=== PATIENT | female | born 1985 | race Caucasian/White ===

== ENCOUNTER 2017-09-04 12:12 | Outpatient (CLI) | payer OTHER | END 2017-09-04 12:13 | disposition home or self-care (01) | LOC: LAB 12:12 | PROVIDERS: ATTEND Nurse Practitioner Obstetrics & Gynecology | DX: Z36.88 Encounter for antenatal screening for fetal macrosomia (principal) | CPT/HCPCS: 36415; 82947 ==

== ENCOUNTER 2017-09-13 14:27 | Outpatient (CLI) | payer OTHER ==
--- NOTE | 2017-09-15 08:37 | Ultrasound Report ---
OB FOLLOWUP: 09/13/2017 CLINICAL INDICATION: Size greater than dates. COMPARISON: Report of outside ultrasound dated 05/25/2017. CLINICAL INDICATIONS: anatomy. TECHNIQUE: Real-time scanning was performed with metals sales representative static images obtained. LAST MENSTRUAL PERIOD Uncertain CLINICAL AGE 35 weeks 4 days by previous outside scan US AGE 35 weeks 2 days EFW HADLOCK 2593 grams EFW% HADLOCK 36% HEART RATE 126 bpm EDC 10/14/2017 US EDC 10/16/2017 BPD HADLOCK 35 weeks 2 days; Mean mm 88 HC HADLOCK 36 weeks 1 day; Mean mm 321 AC HADLOCK 35 weeks 0 days; Mean mm 311 FL HADLOCK 34 weeks 5 days; Mean mm 68 PRESENTATION cephalic. PLACENTAL LOCATION anterior. CERVICAL LENGTH -- AMNIOTIC FLUID 9.2 cm; MVP 3.5 cm FINDINGS: There is a single viable intrauterine gestation, in cephalic presentation. heart rate is 126 BPM. The placenta is anterior, without evidence of previa. Amniotic fluid volume is normal, with an ALEX of 9.2. By size , the fetus measures 35 weeks 2 days (35 weeks 4 days by outside ultrasound dating). Estimated weight by Hadlock method is 2593 grams. No free fluid or adnexal lesion is seen. IMPRESSION: SINGLE VIABLE INTRAUTERINE GESTATION, WITH SIZE IN KEEPING WITH DATING FROM PREVIOUS SCAN. ESTIMATED WEIGHT OF 2593 GRAMS BY HADLOCK METHOD. TD: 09/13/2017 16:34 MTDD
== END 2017-09-13 14:28 | disposition home or self-care (01) ==
LOC: DI 14:27
PROVIDERS: ATTEND Nurse Practitioner Obstetrics & Gynecology
DX: Z36.88 Encounter for antenatal screening for fetal macrosomia (principal)
CPT/HCPCS: 76816

== ENCOUNTER 2017-09-21 08:00 | Outpatient (CLI) | payer OTHER | END 2017-09-21 23:59 | disposition home or self-care (01) | LOC: LAB.R 08:00 | PROVIDERS: ATTEND Registered Nurse | DX: Z34.83 Encounter for supervision of other normal pregnancy, third trimester (principal) | CPT/HCPCS: 87081 ==

== ENCOUNTER 2017-09-27 11:51 | Outpatient (CLI) | payer OTHER | END 2017-09-27 11:52 | disposition home or self-care (01) | LOC: LAB 11:51 | PROVIDERS: ATTEND Nurse Practitioner Obstetrics & Gynecology | DX: Z36.9 Encounter for antenatal screening, unspecified (principal) | CPT/HCPCS: 36415; 85018; 86850; 86900; 86901 ==

== ENCOUNTER 2017-10-17 07:10 | Inpatient (IN) | payer OTHER ==
[~2017-10-17 07:10] MED LIST: BUPIVACAINE 0.5% PF 10 ML VIAL IM ONE
[2017-10-17] MEDS ORDERED: SODIUM CHLORIDE FLUSH 0.9% 10 ML SYRINGE IVP PRN (09:05)
[2017-10-17] MEDS ORDERED: ONDANSETRON 4 MG/2 ML VIAL IVP PRN ×2 (09:05→23:39)
--- NOTE | 2017-10-17 09:13 | HISTORY & PHYSICAL EXAMINATION ---
Admit History - Instructions Cachil Dehe/Slash: -Left hand click circles element as positive or present. -Right hand click slashes element as negative or not present. - Visit Reason Visit Reason: Other (IOL for postdates status) - : 1 Parity: 0 Premature: 0 Ectopic: 0 : 0 Care: positive: [facility] (beginning @ 34 weeks' gestation: 5 visits), [facility] (beginning @ 6 weeks' gestation, 6 visits) Complications This : positive: Other (obesity, refused gtt) Smoking Status: Never smoker - Mother's Labs Mother's Blood Type: positive: O Mother's RH: positive: Positive GBS: positive: Group B Step Negative Rubella Status: positive: Immune - Other Maternal History Other Maternal History: Neena Pollack is a 32 y/o @ 40w5d by first trimester US, who began care at [facility] @ 6 weeks' gestation. She received care x6 visits there until she transferred care to [facility] for CNM care at 34 weeks' gestation. She was seen for 5 visits in this setting. Her care has been complicated by gtt refusal & obesity. She monitored her CBGs QID for 2 weeks w/o elevation & had hgba1c 4.9% & normal random glucose findings. She articulated understanding of the risks r/t this declination. She presents today for IOL for postdates gestation per pt's request. She has pubic symphysis separation & is experiencing debilitating discomfort. She articulates understanding of risks associated w/ IOL & wishes to proceed. PARQ held & informed consent obtained. Physical - Abdominal Exam Vital Signs: Temp Pulse Resp BP Pulse Ox 36.6 C 73 18 122/72 99 18 08:22 10/17/17 08:22 10/17/17 08:22 10/17/17 08:22 10/17/17 08:22 Contraction Frequency (min/apart): occasional Contraction Intensity: positive: Mild Uterine Resting Tone: positive: Soft - Monitoring Heart Rate Baseline: 135 Strip Review: positive: Category I - Presentation Presentation: positive: Vertex - Vaginal Exam Dilation (in cm): 3 Effacement (%): 75 Station: positive: 0 Cervical Position: positive: Midposition (soft) - Speculum Exam Speculum Exam Performed: positive: No - Other Notes Labor Progress Note/Additional Text: Neena Pollack presents for IOL secondary to post-term @ 40w5d by early first trimester US. Her has been complicated only by obesity & refusal of gtt w/ consistently WNL CBG monitoring. She screened negative for GBS. She has pubic symphysis pain that is debilitating & desires IOL as a result. She articulates full understanding of risks associated w/ IOL & wishes to proceed. PARQ held & informed consent obtained. PMH: obesity, depression PSH: none PoBhx: primiparous Pgynhx: denies hx STI, hx vvc, non-recurrent Sochx: denies dv/ to Michael, homemaker, denies ETOH/drugs/tobacco, hx depression, presently well-controlled ROS: GEN: Denies fever/chills, +fatigue HEENT: denies jacques/vision changes CARDIAC: denies CP/palpitations RESP: denies sob/dyspnea/cough GI: denies n/v/d : denies LOF/dysuria/vaginal d/c OB: denies LOF/vaginal bleeding. occ uterine contraction. occ cramp. +FM MS: c/o pubic symphyseal pain, severe NEURO: denies numbness/tingling/weakness SKIN: denies rash/pruritus PSYCH: denies depression/anxiety PE: GEN: AAOX3, NAD WA gravid obese female HEENT: grossly normocephalic, atraumatic, corrective lenses CARDIAC: rrr nls1s2, no murmur RESP: lungs b/l CTA t/o GI: Abd obese, gravid, fetus longitudinal, cephalic presentation, EFW 8.5-9#, palpable movement, NT : No lesions, no exudate OB: EFM: BL 135bpm, +accels, no decels, mod ant; TOCO: Ucs rare; SVE: 3/75/0/mid /soft, IBOW MS: FROM, no swelling, no deformity NEURO: no focal deficit SKIN: c/d/i, warm, well-perfused, +tattoos PSYCH: somewhat agitated from frustration, otherwise normal mood/affect, normal cognition Plan for Labor - Plan For Labor Plan for Labor: Neena Pollack is a 32 y/o @ 40w5d by first trimester US GBS negative, IBOW FHTs cat I Plan: 1. reviewed options for IOL, including mechanical & medical cervical ripening vs. initiation of Pitocin infusion; pt elects misoprostol administration, full PARQ held 2. place in observation status for cervical ripening--anticipate inpt admission w/ ROM or in active labor 3. misoprostol 50mcg BC q 4 hours 4. reassess cervical status w/ clinical indication 5. analgesia/anesthesia PRN per pt request
[2017-10-17 09:42] LABS: BASOPHILS # (AUTO) 0.1 10^3/uL (0.0-0.1); BASOPHILS % (AUTO) 0.6 %; EOSINOPHILS % (AUTO) 0.4 %; LYMPHOCYTES # (AUTO) 2.2 10^3/uL (1.5-3.5); LYMPHOCYTES % (AUTO) 21.1 %; MEAN CORPUSCULAR HEMOGLOBIN 29.2 pg (27.0-31.0); MEAN CORPUSCULAR HGB CONC 33.6 g/dL (32.0-36.0); MEAN PLATELET VOLUME 9.6 fL (7.9-10.8); MONOCYTES # (AUTO) 0.6 10^3/uL (0.0-1.0); MONOCYTES % (AUTO) 6.2 %; NEUTROPHILS # (AUTO) 7.4 10^3/uL (1.5-6.6); NEUTROPHILS % (AUTO) 71.7 %; PLT - PLATELET COUNT 217 10^3/uL (130-450); RED BLOOD COUNT 4.12 10^6/uL (4.20-5.40); RED CELL DISTRIBUTION WIDTH 13.8 % (12.0-15.0); WHITE BLOOD COUNT 10.3 x10^3/uL (4.8-10.8)
[2017-10-17] MEDS: miSOPROStol 100 MCG TABLET BC SCH ×2 (13:12→20:03)
[2017-10-17] MEDS ORDERED: LACTATED RINGERS 1,000 ML IV ONE (14:31)
[2017-10-17] MEDS: LACTATED RINGERS 1,000 ML IV SCH ×3 (14:50→23:56)
[2017-10-17] MEDS ORDERED: SODIUM CHLORIDE FLUSH 0.9% 10 ML SYRINGE IVP SCH (17:00)
[2017-10-17] MEDS ORDERED: NALBUPHINE 20 MG/ML AMP IVP PRN ×2 (20:22→23:39)
--- NOTE | 2017-10-17 20:22 | PROVIDER PROGRESS NOTE ---
Labor Progress Note - Uterine Monitoring Uterine Monitoring Mode: positive: External toco Contraction Frequency (min/apart): 3-4 Contraction Intensity: positive: Mild to moderate Uterine Resting Tone: positive: Soft - Monitoring Monitor Mode: positive: External ultrasound Heart Rate Baseline: 150 Heart Rate Variability: positive: Moderate (6-25 bmp) Accelerations: positive: Present, 15x15 Decelerations: positive: Late (occasional, non-repetitive to jasbir in 120s w/ spontaneous return to baseline w/in 40 seconds) Strip Review: positive: Category II - Vaginal Exam Dilation (in cm): 4 Effacement (%): 75 Station: 0 Cervical Position: Anterior (soft) - Labor Progress Note Labor Progress Note/Additional Text: S: Neena reports discomfort 4/10 w/ uterine contractions. Does not desire analgesia/anesthesia @ this time. Does not have a plan for discomfort; ultimately will desire epidural placement. Michael is at the bedside & is supportive O: VS: T 97.2 HR 64 RR 20 BP 108/64 EFM: BL 150bpm, +accels, occ, non-repetitive late deceleration to jasbir in 120s w/ spontaneous return to baseline <60 seconds, mod variability TOCO: UCs q 3-4 min x60 seconds, palpably moderate SVE: 4/75/0, anterior, soft, IBOW A: 32 y/o @ 40w5d by first trimester US, induction of labor for discomfort , postdates status s/p 1 dose misoprostol 50mcg buccally w/ slight cervical change GBS negative w/ IBOW FHTs cat II, no evidence of hypoxemia Adequate pain control @ present w/o analgesia/anesthesia P: 1. As late decels occur only in the setting of supine maternal positioning & maternal body habitus is that of extreme truncal obesity, encouraged more upright maternal positioning & reviewed optimal positioning to encourage descent 2. Continue misoprostol 50mcg BC x1 more dose, reassess cervical status x4 hours , earlier PRN 3. With continued cervical change, will initiate Pitocin infusion to maintain adequate contraction pattern 4 hours after next misoprostol dosing 4. AROM in active labor 5. Analgesia/anesthesia PRN per pt request 6. Reviewed plan of care w/ pt, partner, RN @ bedside; all in agreement, without concerns. Dr. Radha, DO, updated as to pt's clinical status.
[2017-10-17] MEDS ORDERED: OXYTOCIN/SODIUM CHLORIDE 500 ML IV SCH (21:00)
[2017-10-17] MEDS ORDERED: fent/BUPIV 2 MCG/0.125% 250 ML EP ONE (22:27)
[2017-10-17] MEDS ORDERED: ROPIVACAINE 0.5% PF 20 ML AMPULE ONE (22:42)
[2017-10-17] MEDS ORDERED: ePHEDrine 50 MG/ML VIAL IVP PRN (23:39)
[2017-10-17] MEDS ORDERED: NALOXONE 0.4 MG/ML VIAL IVP PRN (23:39)
[2017-10-17] MEDS ORDERED: diphenhydrAMINE INJ 50 MG/ML VIAL IVP PRN (23:39)
[2017-10-17] MEDS ORDERED: METOCLOPRAMIDE 10 MG/2 ML VIAL IVP PRN (23:39)
[2017-10-17] MEDS ORDERED: fent/BUPIV 2 MCG/0.125% 250 ML EP PRN (23:39)
[2017-10-17] MEDS ORDERED: LACTATED RINGERS 500 ML IV ONE (23:39)
--- NOTE | 2017-10-18 00:31 | PROVIDER PROGRESS NOTE ---
Labor Progress Note - Uterine Monitoring Uterine Monitoring Mode: positive: External toco Contraction Frequency (min/apart): 2-3 Contraction Intensity: positive: Moderate to strong Uterine Resting Tone: positive: Soft - Monitoring Monitor Mode: positive: External ultrasound Heart Rate Baseline: 145 Heart Rate Variability: positive: Moderate (6-25 bmp) Accelerations: positive: Present, 15x15 Decelerations: positive: None Strip Review: positive: Category I - Vaginal Exam Dilation (in cm): 5 Effacement (%): 80 Station: 0 (per RN) Cervical Position: Anterior - Labor Progress Note Labor Progress Note/Additional Text: S: Neena is comfortable w/ her epidural in place, hoping to sleep. Michael is asleep @ the bedside. O: VS: T: 97.2 HR 68 RR 18 BP 106/55 EFM; BL 145, +accels, no decels, mod ant TOCO: UCs q 3-5 min x60 seconds SVE per RN 5/80/0 anterior, soft A: 32 y/o @ 40w6d, IOL for postdates status, maternal discomfort GBS negative, IBOW FHTs cat I s/p misoprostol 50mcg buccally x2 doses, active cervical change Adequate pain control w/ epidural in place P: 1. Reassess cervical status x2 hours, earlier PRN 2. Pitocin infusion if no further cervical change 3. Reviewed optimal maternal positioning to encourage descent 4. Encouraged maternal rest
[2017-10-18] MEDS: LACTATED RINGERS 1,000 ML IV SCH ×2 (02:13→04:11)
[2017-10-18] MEDS ORDERED: MAGNESIUM HYDROXIDE 2,400 MG/30 ML UDC PO PRN (06:26)
[2017-10-18] MEDS ORDERED: WITCH HAZEL/GLYCERIN 1 EACH MED..PAD TOP PRN (06:26)
[2017-10-18] MEDS ORDERED: OXYTOCIN/SODIUM CHLORIDE 250 ML IV ONE (06:26)
[2017-10-18] MEDS ORDERED: HYDROCORTISONE 1% CREAM 28 GM TUBE PR PRN (06:26)
[2017-10-18] MEDS ORDERED: HYDROCORTISONE/PRAMOXINE 10 GM PR PRN (06:26)
[2017-10-18] MEDS ORDERED: LIDOCAINE 1% 50 ML MDV ONE (06:27)
--- NOTE | 2017-10-18 06:29 | DELIVERY NOTE ---
Delivery Note - Labor Labor: positive: Other (labor ensued s/p 2 total doses buccal misoprostol 50mcg) - Infant Delivery Method Delivery Method: positive: Spontaneous vaginal delivery - Presentation Presentation: positive: Vertex, Compound (MORALES w/ compound R hand) - Nuchal Cord Nuchal Cord: positive: Present (tight x1, somersaulted through s/p delivery of shoulders/body, tight loop around RLE) - Anesthetic Anesthetic Type: - Amniotic Fluid Description Amniotic Fluid Description: positive: Light meconium - Episiotomy Type Episiotomy Type: positive: None - Laceration Laceration: positive: None - Delivery Outcome Delivery Outcome: positive: Livebirth - [place]: positive: Placed in direct skin contact with mother, Suctioned, Bulb syringe, Warmed, [place] used sex: positive: Male - Cord Cord: positive: 3 vessels - Placenta Placenta: positive: Intact, Spontaneous (AMTSL delayed secondary to Pitocin not in room) - Estimated Blood Loss Estimated Blood Loss (in cc): 100 - Post Delivery Events Post Delivery Events: positive: No post delivery events - Delivery Comments (Free Text/Narrative) Delivery Comments (Free Text/Narrative): Neena Pollack is a 32 y/o [id number] who received care beginning in the early first trimester. Her care was complicated by her obesity & her declination of gtt--she checked CBGs x2 weeks w/o any elevation & had a normal hgba1c as well as normal random glucose levels throughout the latter portion of her . She presented for induction of labor secondary to pubic symphyseal dysfunction & postdates status @ 40w5d. She received two doses of buccal misoprostol 50mcg & entered active labor. She received epidural anesthesia for her discomfort. She SROMed for light MSAF @ 0250, for a total ruptured duration of 3 hours, 27 minutes. She progressed steadily to an anterior lip, which was reduced over a period of 3 maternal expulsive efforts, to complete dilatation @ 0558, for a total first stage duration of 5 hours, 58 minutes. FHTs were monitored electronically t/o & were cat I-II w/ some intermittent late decelerations dependent on maternal positioning & hypotension that resolved w/ intrauterine resuscitative measures. Neena pushed w/ direction & excellent expulsive effort to of viable male in MORALES position w / compound R hand @ 0612, for a total 2nd stage duration of 14 minutes. Tight nuchal x1, infant somersaulted through s/p delivery of shoulders/body. Tight loops of cord also noted around RLE. Infant vigorous w/ spontaneous, lusty cry. Placed to maternal abdomen for drying/stim. Delayed cord clamping until cessation of pulsation, then cord clamped x2 by CNM, cut by FOB; 3VC noted, cord blood obtained; segment obtained for cord gases secondary to cat II FHTs w / terminal bradycardia immediately prior to delivery. AMTSL delayed secondary to availability of Pitocin for infusion, initiated just prior to spontaneous delivery of placenta, Coy & intact, @ 0617, for a total 3rd stage duration of 5 minutes. FF U-1. Vagina & perineum inspected & found to be intact. EBL 100mL. Apgars 7/9. Weight pending. Infant & mother stable, planning to breastfeed.
[2017-10-18] MEDS ORDERED: LACTATED RINGERS 1,000 ML IV SCH (07:00)
[2017-10-18] MEDS: ACETAMINOPHEN 500 MG TABLET PO SCH ×2 (08:49→17:58)
[2017-10-18] MEDS: CELECOXIB 100 MG CAPSULE PO SCH ×2 (08:49→21:16)
[2017-10-18] MEDS: DOCUSATE SODIUM 100 MG CAPSULE PO SCH ×2 (08:49→21:15)
[2017-10-19] MEDS: ACETAMINOPHEN 500 MG TABLET PO SCH ×3 (03:47→20:15)
[2017-10-19] MEDS: DOCUSATE SODIUM 100 MG CAPSULE PO SCH ×2 (09:02→20:14)
[2017-10-19] MEDS: CELECOXIB 100 MG CAPSULE PO SCH ×2 (09:03→20:15)
--- NOTE | 2017-10-19 09:29 | PROVIDER PROGRESS NOTE ---
Subjective - Prog Note Date Prog Note Date: 10/19/17 Prog Note Time: 09:15 - Subjective Pt reports feeling: Improved Subjective: Neena is doing well. She is ambulating & voiding w/o difficulty. She is passing flatus & tolerating a regular diet. She is well w/o discomfort. She reports minimal vaginal bleeding. She was able to sleep some overnight. Michael is present @ the bedside & is supportive. She is not planning to return to work; her parents are arriving tonight to assist her & her will have 10 days off to help her as well. Objective - Vital Signs/Intake & Output Reviewed Vital Signs: Yes Vital Signs: Vital Signs x48h Temp Pulse Resp BP Pulse Ox 10/19/17 03:52 36.4 C L 69 18 123/64 100 Intake & Output: Intake & Output 10/16/17 10/17/17 10/18/17 10/19/17 23:59 23:59 23:59 23:59 Intake Total 823.333 675.000 Output Total 500 Balance 823.333 175.000 - Objective General Appearance: positive: No acute distress, Alert Eyes Bilateral: positive: Normal inspection Respiratory: positive: Chest non-tender, No respiratory distress, Breath sounds nml Cardiovascular: positive: Regular rate & rhythm, No murmur Abdomen: positive: Non-tender, No distention, Other (FFU-1) Skin: positive: Color nml, No rash, Warm, Dry Extremities: positive: Non-tender, Full ROM, Nml appearance, No pedal edema. negative: Calf tenderness Neurologic/Psychiatric: positive: Oriented x3, CN's nml (2-12), Motor nml, Sensation nml, Mood/affect nml Comments/Other: Breasts b/l S, NT; nipples b/l intact & everted; colostrum readily expressible. Perineum intact w/ minimal edema, no erythema, no ecchymosis, minimal lochia rubra. - Lab Results Fish Bones: 10/17/17 09:23 10/17/17 09:23 Assessment/Plan - Problem List (1) (normal spontaneous vaginal delivery) Impression: 32y/o s/p w/o laceration 10/18/17, PPD#1 Normal uterine involution Adequate pain control w/o opioid analgesia well P: 1. Continue routine care 2. support provided & to continue in ongoing fashion 3. Anticipatory guidance for initial pp period 4. Anticipate D/C to home PPD#2
[2017-10-20] MEDS: CELECOXIB 100 MG CAPSULE PO SCH (00:10)
[2017-10-20 08:04] VITALS: BP 121/60
--- NOTE | 2017-10-20 09:18 | Discharge Plan ---
Discharge Plan Disposition: 01 Home, Self Care Condition: Good Diet: Regular Activity Restrictions: pelvic rest x6wks Shower Restrictions: No Driving Restrictions: No Weight Bearing: Full Weight Instruction Topics: Vaginal After, Exercises Kegel, Breastfeed How To Additional Instructions or Follow Up instructions: x1 week with Yamileth Fried CNM No Smoking: If you smoke, Please STOP! Call for help. Follow-up with: Yamileth Fried CNM, JULIO [Provider Admit Priv/Credential] -
--- NOTE | 2017-10-20 11:21 | DISCHARGE SUMMARY ---
"Discharge Summary Admit Date: 10/17/17 Discharge Date: 10/20/17 Discharging Provider: MILLIE Code Status: Attempt Resuscitation Condition at Discharge: Good Discharge Disposition: 01 Home, Self Care Discharge Facility Name: [facility] - DIAGNOSES Admission Diagnoses: 40 WEEKS' GESTATION Discharge Diagnoses with Status of Each Condition: EPIDURAL PLACEMENT - HPI History of Present Illness: CARMEN LINARES IS A 32 Y/O WHO PRESENTED FOR IOL SECONDARY TO MATERNAL DISCOMFORT & POSTDATES STATUS. SHE RECEIVED 2 DOSES 50MCG MISOPROSTOL BUCCALLY & ENTERED ACTIVE LABOR. SHE RECEIVED AN EPIDURAL FOR ANESTHESIA & EXPERIENCED SROM FOR LIGHT MSAF. SHE PROGRESSED READILY TO COMPLETE DILATATION & DELIVERED VAGINALLY OVER AN INTACT PERINEUM W/O COMPLICATIONS. - CONSULTS | PROCEDURES Procedures: INDUCTION OF LABOR EPIDURAL PLACEMENT - HOSPITAL COURSE Hospital Course: , SHE IS AMBULATING & VOIDING W/O DIFFICULTY. SHE IS PASSING FLATUS & TOLERATING PO INTAKE. SHE IS WELL W/O DISCOMFORT. HER PAIN IS WELL-CONTROLLED W/ NON-OPIOID ANALGESIA. SHE REPORTS MINIMAL LOCHIA RUBRA. SHE HAS A HX OF DEPRESSION & ANXIETY. SHE REPORTS GOOD SOCIAL SUPPORT. SHE WILL NOT BE RETURNING TO WORK & HAS ASSISTANCE AT HOME W/ HER . SHE IS ABLE TO FULLY ARTICULATE PP WARNING S/SX, INCLUDING PP DEPRESSION S/SX, AND PP AFTERCARE INSTRUCTIONS. SHE IS READY TO LEAVE THE HOSPITAL. - ALLERGIES Allergies/Adverse Reactions: Allergies Allergy/AdvReac Type Severity Reaction Status Date / Time No Known Allergies Allergy Unknown Verified 10/18/17 02:12 - PHYSICAL EXAM AT DISCHARGE General Appearance: positive: No acute distress, Alert Eyes Bilateral: positive: Normal inspection Respiratory: positive: Chest non-tender, No respiratory distress, Breath sounds nml Cardiovascular: positive: Regular rate & rhythm, No murmur Abdomen: positive: Non-tender, No distention, Other (FFU-2) Skin: positive: Color nml, No rash, Warm, Dry Extremities: positive: Non-tender, Full ROM, Nml appearance, Pedal edema (+2). negative: Calf tenderness Neurologic/Psychiatric: positive: Oriented x3, CN's nml (2-12), Motor nml, Sensation nml, Mood/affect nml Physical Exam Other/Comments: BREASTS B/L S, NT; NIPPLES B/L INTACT & EVERTED; COLOSTRUM READILY EXPRESSIBLE PERINEUM INTACT W/O EDEMA/ERYTHEMA/ECCHYMOSIS; MINIMAL LOCHIA RUBRA - LABS Result Diagrams: 10/17/17 09:23 10/17/17 09:23 - FOLLOW UP Follow Up: X1 WEEK W/ MOSHE PINTO CNM, EARLIER PRN PROBLEM - TIME SPENT Time Spent in Discharge (Minutes): 30"
--- NOTE | 2017-10-20 12:56 | Labor Flowsheet ---
Labor Flowsheet Datetime Report Generated by CPN: 10/20/2017 12:56 Datetime: 10/20/2017 08:03 VITAL SIGNS NBP Sys/Nanci/Mean (mmHg): 121 : 60 : 71 Pulse: 65 LaborFlag: Labor Datetime: 10/18/2017 06:12 UTERINE ACTIVITY Monitor Mode: External Contraction Comments: indeterminate d/t constant maternal pushing ASSESSMENT A Monitor Mode: Internal Scalp Electrode Comments: indeterminate baseline w/ mod variability and indeterminate decels w/ temporary recovery up to 120 then bradycardia (as low as the 60s) for last 2-3 minutes before delivery Datetime: 10/18/2017 06:00 PAIN Pain Scale: 10 Pain Presence: Constant Pain Type: Pressure Pain Location: Perineum; Coccyx Pain Relief Measures: Epidural Given; Comfort Measures Pain Assessment Comments: pt ready to push Datetime: 10/18/2017 05:58 Monitor Interventions for FHR: FSE Applied VAGINAL EXAM Dilatation (cm): 10.0 Effacement (%): 100 Exam by: Yamileth Fried CNM Datetime: 10/18/2017 05:56 I/O Interventions: [place] Discontinued Datetime: 10/18/2017 05:53 Station: 2 Vaginal Exam Comments: anterior lip Datetime: 10/18/2017 05:52 Frequency (min): 2-3 Duration (sec): 60-80 Pattern: Normal: <= 5 Contractions in 10 Minutes FHR Baseline Rate : 145 Variability: Minimal - Undetectable to <=5 bpm Accelerations: None Decelerations: None Actions for Decelerations: Side to Side; Oxygen Applied; IV Bolus; Provider Notified Category: Category II Oxygen Amount (LPM): 10 Oxygen Method: Face Mask STAGE 2 Pushing: Coached on Pushing; Urge to Push Pushing Position: Pushing with Contractions; Pushing Right Side; Pushing Lithotomy Pushing Progress: Descent with Pushing Datetime: 10/18/2017 05:50 COMMUNICATION Communication: Provider at Bedside Provider Notified (Name): Yamileth Fried CNM Datetime: 10/18/2017 05:30 TEACHING Instructional Method: Verbal Plan of Care: Plan of Care Discussed Labor/Induction: Pushing Methods Datetime: 10/18/2017 05:26 Nausea/Vomiting: Present Datetime: 10/18/2017 05:24 Monitor Interventions for UA: [place] Adjusted Datetime: 10/18/2017 05:23 Patient Position/Activity: Right Lateral Datetime: 10/18/2017 05:10 Communication Comments: minimal variable w/ recurrent late decels; provider to come review strip Datetime: 10/18/2017 05:05 Respirations: 16 Temperature (C): 36.7 Datetime: 10/18/2017 05:01 Resting Tone (Palpate): Relaxed Datetime: 10/18/2017 05:00 Pain Coping: Breathing Through Contractions Datetime: 10/18/2017 04:24 Epidural Procedure: Loading Dose Datetime: 10/18/2017 04:15 Quality: Strong Datetime: 10/18/2017 03:30 Anesthesia Level Check: T9 Datetime: 10/18/2017 02:50 Membrane Status: Ruptured Membranes Rupture Method: Spontaneous Amniotic Fluid Color: Light Meconium Amniotic Fluid Amount: Moderate Amniotic Fluid Odor: Normal Datetime: 10/18/2017 02:29 Pain Management: Epidural; Pain Scale/Goals; Comfort Measures Datetime: 10/18/2017 02:10 PATIENT CARE IV/Blood Work: IV Bolus Started Datetime: 10/18/2017 02:05 Notification Reason: Status Update; Status Datetime: 10/18/2017 02:00 MATERNAL ASSESSMENT Level of Consciousness: Fully Conscious Headache: Denies Breath Sounds, Left: Clear and Equal Breath Sounds, Right: Clear and Equal Datetime: 10/18/2017 01:37 Unit Routine: Medications Datetime: 10/17/2017 23:45 Vital Sign Comments: 36.5 Datetime: 10/17/2017 23:42 ANESTHESIA Anesthesia Plans: Epidural Anesthesia Comments: pt laid flatter to allow epidural to work higher Datetime: 10/17/2017 23:04 SpO2 (%): 100 Datetime: 10/17/2017 22:37 Patient Care Comments: sitting at side of bed Datetime: 10/17/2017 22:16 Consults: Anesthesia Datetime: 10/17/2017 20:52 Medications: Cervical Ripening Datetime: 10/17/2017 20:03 MEDICATIONS Cervical Ripening Agents: Cytotec @ Datetime: 10/17/2017 16:59 FHR Baseline Changes: No Baseline Change Datetime: 10/17/2017 16:29 RUQ Epigastric Pain: Denies Datetime: 10/17/2017 16:19 Stage of : Labor Datetime: 10/17/2017 16:11 Provider Reviewed Strip: Yes Strip Reviewed by: CNM Milagrosa Datetime: 10/17/2017 13:14 Vaginal Bleeding: Normal Show Cervix, Consistency: Moderate Cervix, Position: Midposition
== END 2017-10-20 11:30 | disposition home or self-care (01) | DRG 775 ==
LOC: WFO 07:10 → FBP 07:12 → WFO 09:33 → FBP 09:50 → OBSVTOIN 10-18 00:33
PROVIDERS: ADMIT Registered Nurse; ATTEND Registered Nurse
PROC: 10E0XZZ Delivery of Products of Conception, External Approach (ICD-10-PCS; principal; 2017-10-18)
DX: O48.0 Post-term pregnancy (principal); O71.6 Obstetric damage to pelvic joints and ligaments; Z37.0 Single live birth; Z3A.40 40 weeks gestation of pregnancy; O99.214 Obesity complicating childbirth; E66.9 Obesity, unspecified; Z68.39 Body mass index [BMI] 39.0-39.9, adult; O32.6XX0 Maternal care for compound presentation, not applicable or unspecified; O69.81X0 Labor and delivery complicated by cord around neck, without compression, not applicable or unspecified; O77.0 Labor and delivery complicated by meconium in amniotic fluid; I95.9 Hypotension, unspecified; O76 Abnormality in fetal heart rate and rhythm complicating labor and delivery; Z86.59 Personal history of other mental and behavioral disorders
CPT/HCPCS: 36415; 59200; 82947; 85025; 86850; 86900; 86901; 96360; 96361